=== PATIENT | male | born 1965 | race Caucasian/White ===

== ENCOUNTER → 2018-10-05 06:59 | Outpatient (CLI) | payer SELFPAY ==
--- NOTE | 2018-10-05 07:00 | RAD_ITS ---
STUDY: X-RAY - ORBITS REASON FOR EXAM: Male, 52 years old. This study is being performed as a clearance examination for exclusion of orbital metal, prior to the performance of an MRI examination. TECHNIQUE: 2 view(s) of the orbits were obtained. COMPARISON: None. FINDINGS: Normal bilateral orbits without a metallic orbital foreign body. Normal visualized facial bones. Normal paranasal sinuses. The soft tissue structures are unremarkable. RAD/Orbits for Foreign Body IMPRESSION: No demonstrated metallic orbital foreign body. The patient is cleared for an MRI examination. Electronically Signed: Ignacio Robertson MD at 8:36 EST , Service support ,
--- NOTE | 2018-10-05 07:23 | MRI_ITS ---
STUDY: MRI RIGHT SHOULDER REASON FOR EXAM: Pain after a fall 16 days ago, decreased range of motion. TECHNIQUE: Standardized fat and water weighted pulse sequences were obtained in all 3 orthogonal planes. COMPARISON: None. FINDINGS: There is a signal void at the distal anterior aspect of the supraspinatus tendon measuring 0.6 cm in length (T2 sagittal image 21) with adjacent inflammation (T2 coronal image 14; proton density axial image 11) consistent with calcific tendinitis. There is no discrete tear of the supraspinatus tendon. Normal infraspinatus tendon. Normal subscapularis tendon. Normal teres minor tendon. Normal supraspinatus muscle. Normal infraspinatus muscle. Normal subscapularis muscle. Normal teres minor muscle. There is a small glenohumeral joint effusion. There is mild subchondral cystic change of the greater tuberosity. Normal biceps labral complex. Normal intracapsular long biceps tendon. Normal labrum. Normal capsulo- ligamentous complex. There is mild acromioclavicular arthrosis without substantial undersurface osteophytes (T2 sagittal image 10). There is a Type I morphology (flat undersurface), with a neutral orientation. There is a small volume of subacromial-subdeltoid bursal fluid (T2 coronal images 8-16). Normal visualized coracohumeral and coracoacromial ligaments. Normal deltoid muscle. Normal trapezius muscle. MRI/Upper Ext Joint Only(Routine) IMPRESSION: Supraspinatus calcific tendinitis. Mild acromioclavicular arthrosis. Mild subacromial-subdeltoid bursitis. Small glenohumeral joint effusion. No demonstrated rotator cuff tear. Electronically Signed: Dion Wu MD at 9:11 EST Tel , Service support ,
== END ==
DX: M25.511 Pain in right shoulder (principal)
CPT/HCPCS: 70030; 73221